=== PATIENT | male | born 1995 | race African-American/Black ===

== ENCOUNTER 2025-05-25 14:36 | Emergency (ER) | payer MEDICAID ==
[~2025-05-25] VITALS: Ht 165.1 cm; Wt 68.0 kg
[2025-05-25 14:43] VITALS: TEMP 37; O2SAT 98
[2025-05-25] MEDS ORDERED: P50 MT (15:39)
[2025-05-25] MEDS ORDERED: DIPH25CA83 MT (15:44)
[2025-05-25] MEDS ORDERED: CEPH500T MT (15:44)
[2025-05-25] MEDS ORDERED: TC1C15 TP (15:44)
[2025-05-25] MEDS ORDERED: FAMO-135 MT (15:44)
[2025-05-25] MEDS: DIPHENHYDRAMINE 25MG CAPSULE PO ONE (16:11)
[2025-05-25] MEDS: FAMOTIDINE 20MG TABLET PO ONE (16:11)
[2025-05-25] MEDS: METHYLPREDNISOLONE SOD SUCC 125MG/2ML (ACT-O-VIAL) IM ONE (16:11)
[2025-05-25 16:31] VITALS: BP 126/75; PULSE 57; RESP 18; O2SAT 98
== END 2025-05-25 16:39 | disposition home or self-care (01) ==
LOC: ER 14:36
DX: L30.9 Dermatitis, unspecified (principal)
CPT/HCPCS: 96372; 99283; Q0163; J2919; Z7610

== ENCOUNTER 2025-05-28 21:24 | Emergency (ER) | payer MEDICAID ==
[~2025-05-28] VITALS: Ht 172.7 cm; Wt 68.0 kg
[~2025-05-28 21:24] MED LIST: CEPH500T MT; DIPH25CA83 MT; FAMO-135 MT; P50 MT
[2025-05-28 21:49] VITALS: O2SAT 100
[2025-05-28 23:28] VITALS: BP 122/74; PULSE 80; RESP 16; TEMP 36.7; O2SAT 97
== END 2025-05-28 23:31 | disposition home or self-care (01) ==
LOC: ER 21:24
DX: L30.8 Other specified dermatitis (principal); Z79.899 Other long term (current) drug therapy
CPT/HCPCS: 99281

== ENCOUNTER 2025-06-13 14:54 | Emergency (ER) | payer MEDICAID ==
[~2025-06-13] VITALS: Ht 170.2 cm; Wt 69.0 kg
[2025-06-13 15:10] VITALS: O2SAT 99
[2025-06-13] MEDS ORDERED: TACR30OI5 TP (17:47)
[2025-06-13] MEDS ORDERED: P20 MT (17:47)
[2025-06-13] MEDS ORDERED: IBUP-2029 MT (18:27)
[2025-06-13] MEDS ORDERED: ERYT-139 MT (18:27)
[2025-06-13] MEDS: KETOROLAC 30MG/ML VIAL IM ONE (18:41)
[2025-06-13 18:46] VITALS: BP 120/78; PULSE 90; RESP 18; TEMP 36.9; O2SAT 100
== END 2025-06-13 18:55 | disposition home or self-care (01) ==
LOC: ER 14:54
DX: L30.9 Dermatitis, unspecified (principal); Z59.00 Homelessness unspecified; Z79.899 Other long term (current) drug therapy
CPT/HCPCS: 96372; 99283; J1885; Z7610